=== PATIENT | male | born 1985 | race Caucasian/White ===

== ENCOUNTER 2017-08-04 00:09 | Emergency (ER) | payer SELFPAY ==
[~2017-08-04] VITALS: Ht 188 cm; Wt 71.5 kg
[2017-08-04 02:37] VITALS: BP 149/97
== END 2017-08-04 02:40 | disposition home or self-care (01) ==
LOC: EME 00:09
DX: T40.2X1A Poisoning by other opioids, accidental (unintentional), initial encounter (principal); F17.200 Nicotine dependence, unspecified, uncomplicated
CPT/HCPCS: 99281; 99284